=== PATIENT | male | born 1955 | race Caucasian/White ===

== ENCOUNTER 2017-07-08 08:27 | Day surgery (SDC) | payer OTHER ==
--- NOTE | 2017-07-02 21:39 | HP ---
PREOPERATIVE HISTORY AND PHYSICAL: DATE OF SURGERY/ADMISSION: 07/15/17 DATE OF OFFICE VISIT: 07/02/17 ATTENDING SURGEON: Dr. Kandi Barreto.* (DICTATED BY JEFF BLANDON) PROCEDURES: Left shoulder arthroscopic rotator cuff repair, decompression, debridement, subpectoral biceps tenodesis. CHIEF COMPLAINT: Left shoulder. HISTORY OF PRESENT ILLNESS: Vaughn is a 61-year-old male, who presents to the clinic for work-related injury of his left shoulder that caused a rotator cuff tear and biceps tendinitis. He has failed conservative measures and has therefore agreed to undergo a left shoulder arthroscopic rotator cuff repair, decompression, debridement, subpectoral biceps tenodesis with Dr. Barreto on 02/21. PAST MEDICAL HISTORY: 1. Arthritis. 2. Hepatitis A. 3. Depression and anxiety. PAST SURGICAL HISTORY: 1. Hernia repair. 2. Right shoulder decompression and debridement. 3. Two elbow surgeries on his right. 4. Neck fusion. Denies prior complications with anesthesia. He does report nausea with morphine. MEDICATIONS: 1. Tramadol 50 mg 1 to 2 by mouth every 6 hours as needed. 2. Cymbalta 60 mg 2 capsules by mouth every day. 3. Lyrica 25 mg 1 cap by mouth every day. 4. Tylenol 325 mg 3 tabs every 4 hours as needed for pain. ALLERGIES: TETRACYCLINE. FAMILY HISTORY: Positive for hypertension in his mother. Stroke, cancer, heart disease in a brother with the DVT. SOCIAL HISTORY: He is a former smoker, quit several years ago. He reports occasional alcohol use. He denies illegal drug use. He is right hand dominant. REVIEW OF SYSTEMS: A 14-point review of systems was reviewed with the patient. Positive for current complaint, otherwise negative. Denies numbness, tingling, fever, chills, chest pain, shortness of breath, history of DVT or PE, history of bleeding disorder, history of hep C or HIV. PHYSICAL EXAMINATION GENERAL: A 61-year-old well-developed, well-nourished male, in no acute distress. Alert and oriented x3. Appropriate mood and affect. VITAL SIGNS: Height 68, weight 194. Blood pressure 130/86, respiratory rate 18 , temperature 98.1, BMI 29.5. HEENT: Normocephalic, atraumatic. PERRLA. Throat clear. NECK: Supple. PULMONARY: Lungs are clear to auscultation bilaterally. No wheezing, rhonchi, or rales. CARDIO: Regular rate and rhythm. S1, S2. No murmurs, gallops, or rubs. No edema. ABDOMEN: Positive bowel sounds, soft, nontender. MUSCULOSKELETAL: Left upper extremity, skin is intact. No warmth or erythema. Tenderness over the subacromial space in the bicipital groove. Forward flexion to 140, abduction 45, external rotation to 40. +4/5 strength into rotator cuff testing with pain. +2 radial pulses. Sensation is intact to light touch distally. STUDIES: MRI revealed subluxation of the biceps bursal-sided partial thickness tear of the supraspinatus tendon. Possible tear of the subscapularis tendon. IMPRESSION: Left shoulder rotator cuff tear and biceps tendonitis. PLAN: Vaughn is a 61-year-old male with failed conservative measures after a work - related injury of his left shoulder that caused rotator cuff tear and biceps tendonitis. He is therefore agreed to undergo a left shoulder arthroscopic rotator cuff repair, decompression, debridement, subpectoral biceps tenodesis with Dr. Barreto on 07/15/17. He will follow up in 10 to 14 days postop for followup and suture removal. Percocet will be used for postop pain management and Keflex for antibiotic prophylaxis. JEFF BLANDON [id number]/[facility] #: [id number] [facility] CENTERY[facility]
[~2017-07-08 08:27] MED LIST: Buffered Lidocaine 0.9% SYRIN* 5 ML/SYR SYRINGE INTRADERM ONE
[2017-07-08] MEDS ORDERED: ceFAZolin 2 GM PREMIX (*) 2 GM/50 ML BAG IVPB ONE (08:40)
[2017-07-08] MEDS ORDERED: Midazolam* 1 MG/ML 2 ML VIAL (2 MG) ONE (08:50)
[2017-07-08] MEDS ORDERED: fentaNYL* 50 MCG/ML 2 ML VIAL (100 MCG VIAL) ONE (08:50)
[2017-07-08] MEDS ORDERED: Bupivacaine 0.5% SDV PF* 10-30ML VIAL ONE ×2 (09:35)
[2017-07-08] MEDS ORDERED: Bupivacaine 0.25% SDV* 30 ML ONE (09:55)
[2017-07-08] MEDS ORDERED: Cisatracurium* 2 MG/ML MDV 5 ML ONE (10:28)
[2017-07-08] MEDS ORDERED: Succinylcholine* 20 MG/ML 10 ML VIAL ONE (10:44)
[2017-07-08] MEDS ORDERED: Dexamethasone IV* 4 MG/ML 1 ML (4 MG) ONE (10:44)
[2017-07-08] MEDS ORDERED: Famotidine IV* 10 MG/ML 2 ML (20 mg) ONE (10:44)
[2017-07-08] MEDS ORDERED: Propofol* 10 MG/ML 20 ML BTL IV PUSH ONE (10:44)
[2017-07-08] MEDS ORDERED: Ondansetron INJ* 2 MG/ML VIAL ONE (10:44)
[2017-07-08] MEDS ORDERED: Ketorolac INJ* 30 MG/ML 1 ML VIAL ONE (10:44)
[2017-07-08] MEDS ORDERED: Labetalol IV* 5 MG/ML 20 ML VIAL ONE (10:47)
[2017-07-08] MEDS ORDERED: EPHEDrine (Pressors)* 50 MG/ML VIAL ONE (10:58)
[2017-07-08] MEDS ORDERED: DiMENhydriNATE IV* 50 MG/ML VIAL IV PUSH PRN (11:37)
[2017-07-08] MEDS ORDERED: Naloxone* 0.4 MG/ML 1 ML VIAL IV PRN (11:37)
[2017-07-08] MEDS ORDERED: Acetaminophen TAB* 325 MG PO PRN (11:37)
[2017-07-08] MEDS ORDERED: PROCHLORPERAZINE INJ 5 MG/ML 2 ML VIAL IV PRN (11:37)
[2017-07-08] MEDS ORDERED: fentaNYL* 50 MCG/ML 2 ML VIAL (100 MCG VIAL) IV PRN (11:37)
[2017-07-08 13:23] VITALS: BP 130/76
--- NOTE | 2017-07-09 22:16 | OP ---
CC: PCP, Tahir Brown MD * DATE OF OPERATION: 07/08/17 - [facility] DATE OF : 53 SURGEON: Kandi Barreto MD [employer] MECHANIC: JEFF Lea. An anatomic pathology assistant was needed for the entirety of case to help with positioning, retraction, and utilized throughout all portions of the case. ANESTHESIOLOGIST: Dr. Sarabia. ANESTHESIA: General interscalene block. PRE-OP DIAGNOSIS: Left shoulder rotator cuff tear supraspinatus as well as superior labral tear and biceps instability. POST-OP DIAGNOSIS: Left shoulder rotator cuff tear supraspinatus as well as superior labral tear and biceps instability. OPERATIVE PROCEDURE: Left shoulder arthroscopy with 1. extensive glenohumeral debridement. 2. subacromial decompression with acromioplasty 3. rotator cuff repair of supraspinatus 4. subpectoral biceps tenodesis INDICATIONS: Vaughn Rodriguez is a 61-year-old male who presented with a work-related injury that happened in May 2017 when he slipped on the ice and landed on his shoulder. He had significant anterior based pain. He had difficulty with his range of motion. He was concerned for rotator cuff tear. We did an MRI that demonstrated bicep subluxation with no full-thickness tears with concerns for the tear of the subscap as well as part of the supraspinatus. The risks and benefits of surgery were discussed at length. He has failed conservative management including injections, anti-inflammatories and physical therapy. Risks and benefits were discussed at length, they include but are not limited to bleeding, infection, damage to nerves, vessels, surrounding structures, wound nonhealing, persistent pain, need for surgery, scarring, stiffness, incomplete relief of symptoms and risk of anesthesia. DESCRIPTION OF PROCEDURE: The patient was greeted in the preoperative area by the attending surgeon. The correct extremity was marked and consent was confirmed. The patient underwent interscalene nerve block by the anesthesiologist after which he was brought back to the operating suite where he was placed supine position on the operating table. He then underwent general anesthesia and endotracheal intubation after which he was positioned in the right lateral decubitus position with an axillary roll. He was secured with peg board. All bony prominences were padded. The left shoulder was suspended unsterilely with 10 pounds of traction. Left shoulder was prepped and draped in the usual sterile fashion beginning with chlorhexidine soap, scrub, and alcohol wipe and a final prep of ChloraPrep. After appropriate surgical pause indicating side, site, procedure, and administration of antibiotics, a standard postero-lateral portal was made sharply with 11 blade. Scope was introduced into the joint. Joint was examined. There were some chondrosis of the glenohumeral joint. The superior labrum had torn with biceps subluxed. There was damage to the jean as well as the undersurface of the subscap. The anterior portal was made in an outside- in fashion. The shaver was used to debride back the anterior posterior superior labrum to do small chondroplasty. The undersurface of the subscap was then debrided back as well. The biceps was then tenotomized for later tenodesis. There was a full thickness tear of the anterior portion of the supraspinatus. The subscap was identified and shaved and debrided back. Once the debridement was completed, attention was directed to subacromial space. The scope was positioned in the subacromial space. Lateral portal was made in an outside-in fashion. Shaver was used to debride back the abundant bursa that was present. There was an unstable beginning of an L-shaped tear of the supraspinatus. The tendon was carefully released to expose the portion of the tendon, a lot of this tendon was of not good quality. The shaver was used to remove the abundant bursa that was present. The undersurface of the acromion was skeletonized using electrocautery device. A small 4-0 oval kaity was then used to do an acromioplasty, as he had a large anterolateral spur, overarching spur, that was removed. Once the decompression was completed, attention was directed to the rotator cuff. The shaver was used to debride back the unstable portion of the rotator cuff. The 4-0 oval kaity was then used to gently decorticate the greater tuberosity. The rasp was used to also decorticate. One anchor was placed in a medial row. Through a separate stab incision, two 4.75 Healicoil sutures were passed through the tendon again. Part of the portion of the tendon was not of very good quality, eventually this passed through good quality tendon, then in a horizontal mattress configuration it was tied down. The sutures were then passed through a second separate anchor for lateral row fixation, this helped to secure and compress the rotator cuff back to tuberosity. Final images were obtained. Shoulder was taken through range of motion. Attention was directed to the biceps. The bed was airplaned to the left side. The anterior aspect of the shoulder was prepped again using the ChloraPrep. The #15 blade was used to make incision in line with the biceps tendon, soft tissue carefully dissected using Metzenbaum scissors until the fascia was identified. The remainder of the fascia was done bluntly. The biceps was then identified and brought through the groove, it had abundant synovitis and inflammation. The bicipital groove was then prepared in usual fashion with the use of electrocautery device, the red ball rasp and the osteotome. The Q-Fix guide was then placed in the bicipital groove and the drill was drilled unicortically. The Q-Fix anchor was deployed with excellent purchase. The sutures were passed through the tendon in approximately 1 cm proximal to the musculotendinous junction in a Mahesh-Paxton type configuration. The excess bicep was excised. The biceps was then secured. The wounds were copiously irrigated with sterile saline and portals were closed with 3-0 nylon, the anterior wound was closed with 2-0 Vicryl and 3- 0 Monocryl, anterior wound was injected with 20 cc of 0.25% Marcaine plain. Sterile dressings were applied. A Cryo/Cuff and UltraSling were placed. He was awoken from anesthesia and transferred to PACU in stable condition. POSTOPERATIVE PLAN: He will be nonweightbearing. He will be discharged on pain medication, which is hydrocodone, as well as ibuprofen and antibiotics. He will start physical therapy in 4 weeks. He otherwise is nonweightbearing. DVT prophylaxis was considered, but deferred due to no previous personal or family history. I will see the patient back in 2 weeks. [id number]/[facility] #: [id number] ZHAO
== END 2017-07-08 13:38 | disposition home or self-care (01) ==
LOC: OR 08:27
PROVIDERS: ATTEND Orthopaedic Surgery
DX: S46.012A Strain of muscle(s) and tendon(s) of the rotator cuff of left shoulder, initial encounter (principal); S43.492A Other sprain of left shoulder joint, initial encounter; M25.312 Other instability, left shoulder; G89.18 Other acute postprocedural pain; W00.0XXA Fall on same level due to ice and snow, initial encounter; Y92.89 Other specified places as the place of occurrence of the external cause; Y99.0 Civilian activity done for income or pay; Z87.891 Personal history of nicotine dependence; F41.8 Other specified anxiety disorders; M47.812 Spondylosis without myelopathy or radiculopathy, cervical region; Z98.1 Arthrodesis status
CPT/HCPCS: C1713; C1776; J0330; J0690; J1100; J1885; J2250; J2405; J2704; J3010

== ENCOUNTER 2018-05-12 06:11 | Day surgery (SDC) | payer MEDICARE, OTHER ==
--- NOTE | 2018-04-26 09:31 | HP ---
PREOPERATIVE HISTORY AND PHYSICAL: DATE OF ADMISSION/SURGERY: 05/12/18 DATE OF OFFICE VISIT: 04/23/18 ATTENDING SURGEON: Dr. Kandi Barreto.* (DICTATED BY JEFF BLANDON) PROCEDURE: Left shoulder arthroscopic rotator cuff repair. CHIEF COMPLAINT: Left shoulder pain. HISTORY OF PRESENT ILLNESS: Vaughn is a 62-year-old male, who presents to the clinic for left shoulder pain due to a rotator cuff tear. He has failed rotator cuff repair by Dr. Barreto in the past and has recently failed conservative measures for treatment of the retear; therefore, has agreed to undergo a left shoulder arthroscopic rotator cuff repair with Dr. Barreto on 09/22. PAST MEDICAL HISTORY: Arthritis, hepatitis A, depression, anxiety. PAST SURGICAL HISTORY: Hernia repair, right shoulder decompression and debridement, two elbow surgeries on his right elbow, and neck fusion. He has also had a prior left shoulder rotator cuff repair. He denies prior complications with anesthesia. He does report nausea with morphine. MEDICATIONS: 1. Duloxetine 60 mg by mouth every day. 2. Ibuprofen 600 mg 3 times a day as needed. 3. Omeprazole 20 mg 1 by mouth every day. 4. Tylenol 325 two tabs every 4 to 6 hours as needed for pain. ALLERGIES: TETRACYCLINE. FAMILY HISTORY: Positive for hypertension in his mother; stroke, cancer, heart disease; and a brother with DVT. SOCIAL HISTORY: He is a former smoker, quit several years ago. He reports occasional alcohol use. He denies illegal drug use. He is right-hand dominant. REVIEW OF SYSTEMS: A 14-point review of systems was reviewed with the patient. Positive for current complaint, otherwise negative. Denies numbness, tingling, fever, chills, chest pain, shortness of breath, history of DVT or PE, history of bleeding disorder. Denies history of hep C or HIV. PHYSICAL EXAMINATION GENERAL: A 62-year-old well-developed, well-nourished male, in no acute distress. Alert and oriented x3. Appropriate mood and affect. Appropriate balance and coordination of the upper extremities. VITAL SIGNS: Height 68, weight 200, pulse 64, blood pressure 142/82, BMI 30.4. HEENT: Normocephalic, atraumatic. PERRLA. Throat clear. NECK: Supple. PULMONARY: Lungs are clear to auscultation bilaterally. No wheezing, rhonchi, or rales. CARDIO: Regular rate and rhythm. S1, S2. No murmurs, gallops, or rubs. No edema. ABDOMEN: Positive bowel sounds. Soft, nontender. NEURO: Alert and oriented x3. Cranial nerves grossly intact. MUSCULOSKELETAL: Left upper extremity: Skin is intact. Well-healed surgical incision with no signs of infection. Forward flexion to 170, abduction to 150, external rotation to 60, internal rotation to the lower lumbar spine. +4/5 strength to rotator cuff testing with pain. Positive impingement, Speed, Salter- Jhonathan, Stroud. Positive Belkys. +2 radial pulse. Sensation intact to light touch distally. DIAGNOSTIC STUDIES: MRI revealed full-thickness tear of the supraspinatus tendon, subscap appears intact. IMPRESSION: Left shoulder rotator cuff tear. PLAN: The patient is scheduled to undergo a left shoulder arthroscopic rotator cuff repair with Dr. Barreto on 05/12/18. He will follow up 10 to 14 days postop. Percocet will be used for postop pain management and Keflex for antibiotic prophylaxis. JEFF BLANDON [id number]/[facility] #: [id number] MTDYuki
[~2018-05-12 06:11] MED LIST changes: -Buffered Lidocaine 0.9% SYRIN* 5 ML/SYR SYRINGE INTRADERM ONE; +Buffered Lidocaine 1% SYRIN* 1 ML/SYRINGE INTRADERM ONE; +Dexamethasone TAB* 4 MG PO ONE; +DiMENhydriNATE IV* 50 MG/ML VIAL IV PUSH PRN; +Famotidine IV* 10 MG/ML 2 ML (20 mg) IV ONE; +Lactated Ringers 1000 ML Bag* 1,000 ML IV SCH; +Morphine VIAL* 4 MG/ML VIAL (1 ml vial) IV PRN; +Naloxone* 0.4 MG/ML 1 ML VIAL IV PRN; +Ondansetron TAB* 4 MG PO ONE; +PROCHLORPERAZINE INJ 5 MG/ML 2 ML VIAL IV PRN; +fentaNYL* 50 MCG/ML 2 ML VIAL (100 MCG VIAL) IV PRN; +oxyCODONE/Acetamin 5/325 MG* TAB PO PRN
[2018-05-12] MEDS ORDERED: Ondansetron ODT TAB* 4 MG ONE (07:09)
[2018-05-12] MEDS ORDERED: Famotidine IV* 10 MG/ML 2 ML (20 mg) ONE (07:09)
[2018-05-12] MEDS ORDERED: ceFAZolin 2 GM PREMIX in ORs 2 GM/50 ML BAG IVPB ONE (07:09)
[2018-05-12] MEDS ORDERED: Dexamethasone TAB* 4 MG ONE (07:09)
[2018-05-12] MEDS ORDERED: fentaNYL* 50 MCG/ML 2 ML VIAL (100 MCG VIAL) ONE ×2 (08:08→10:50)
[2018-05-12] MEDS ORDERED: Midazolam* 1 MG/ML 5 ML VIAL (5 MG) ONE (08:08)
[2018-05-12] MEDS ORDERED: Ropivacaine* 2 MG/ML 20 ML VIAL (0.2%) ONE (09:06)
[2018-05-12] MEDS ORDERED: Bupivacaine 0.5% SDV PF* 30ML VIAL ONE (11:04)
[2018-05-12] MEDS ORDERED: Ketorolac INJ* 30 MG/ML 1 ML VIAL ONE (11:04)
[2018-05-12] MEDS ORDERED: Propofol* 10 MG/ML 20 ML BTL ONE (11:04)
[2018-05-12] MEDS ORDERED: Lidocaine 2% PF * 5 ML VIAL ONE (11:04)
[2018-05-12 12:03] VITALS: BP 153/99
--- NOTE | 2018-05-12 21:07 | OP ---
CC: PCP, Sarah Ann MD* DATE OF OPERATION: 05/12/18 - [facility] DATE OF : 53 SURGEON: Kandi Barreto M.D. ASSISTANTS: 1. JEFF Deras 2. JEFF Perez. ANESTHESIOLOGIST: Dr. Correa. ANESTHESIA: General interscalene block. PRE-OP DIAGNOSIS: Left shoulder retear of rotator cuff repair. POST-OP DIAGNOSIS: Left shoulder retear of rotator cuff repair. OPERATIVE PROCEDURE: Left shoulder arthroscopy with revision, subacromial decompression, rotator cuff repair, and lysis of adhesions. COMPLICATIONS: None. IMPLANTS USED: One Healicoil, one Multifix, one Regeneten size medium patch. INDICATIONS: Vaughn Rodriguez is a 62-year-old male, who underwent a previous rotator cuff repair for a large tear of the supraspinatus tendon. He did well initially and then he started to have persistent pain. He then started to have more pain with diagnosis of the retear, but not the entirety of the tendon, just anteriorly. He had significant pain with mobility. He also had loss of motion and some signs and symptoms of frozen shoulder. I discussed with patient about the risks and benefits of surgery, and risks included but are not limited to bleeding, infection, damage to nerves, vessels, surrounding structures, wound nonhealing, persistent pain, need for further surgery, scarring, stiffness, incomplete relief of symptoms, and risk of anesthesia, and he has elected to proceed with surgical treatment. DESCRIPTION OF PROCEDURE: The patient was greeted in the preoperative area by the attending surgeon. The correct extremity was marked and consent was confirmed. The patient underwent interscalene nerve block by the anesthesiologist after which he was brought back to the operating suite where he was placed supine position on the operating table. He then underwent general anesthesia and LMA intubation. His left arm was draped unsterile with 10 pounds of traction. Left shoulder was then prepped and draped in the usual sterile fashion beginning with chlorhexidine soap, scrub, and alcohol wipe and a final prep of ChloraPrep. After appropriate surgical pause indicating side, site, procedure, and administration of antibiotics, the posterolateral portal was made sharply with 11 blade. Scope was introduced into the joint. Joint was examined. There was abundant scar tissue and adhesions. There was obvious adhesive capsulitis. There was obvious scar tissue anteriorly. The interval was very tight and thick. The anterior portal was made in an outside-in fashion. The shaver was used to debride back the anterior posterior superior labrum as well as the lysis of adhesions anteriorly along the interval towards all the abundant scar tissue. The subscap was intact. There was evidence of full thickness tear of the supraspinatus tendon only anteriorly, part of the repair remained intact. Once the lysis of adhesions was completed, attention was directed to the subacromial space. The scope was positioned in the subacromial space. The lateral portal was made in an outside-in fashion. Shaver was used to debride back the abundant bursa that was thick and tight. There was evidence of an anterior aspect of the supraspinatus that was torn, however, the posterior aspect was intact. We could see the sutures still in place. The tendon was scarred to the deltoid as well as to the acromion. This was then released using electrocautery and elevator. There was small anterolateral spur evident anteriorly as well as the spur around the AC joint. This was all released doing a revision of acromioplasty and coplaning of the distal clavicle was then done using 4-0 oval kaity. The remainder of the cuff tissue was then released from its adhesions to the deltoid and it was mobilized. Once it was fully mobilized, an Ortho Braid suture was passed as a traction stitch, while another Ortho Braid was then used to do side- and-side repair between the intact and the torn supraspinatus. After that, the greater tuberosity was prepared in usual fashion using electrocautery device and the 4-0 oval kaity was gently decorticated. There was a good bleeding bone that was identified. Then, a 4.75 Healicoil was placed with excellent purchase. A small micropressure was done at the greater tuberosity to allow for further healing. The sutures were then passed through the tendon in a horizontal mattress configuration and tied down. This helped to re-approximate the supraspinatus tendon anteriorly. At this point, images were obtained. It was concerned that this was a revision tear and I then decided to augment the repair with Regeneten patch. The patch was then brought to the field and secured medially with tendon lazara and laterally with bone lazara. Final images were obtained. The wounds were copiously irrigated with sterile saline. Portals were closed with 3-0 nylon. Sterile dressings were applied as well as a Cryo/Cuff and UltraSling. He was awoken from anesthesia and transferred to PACU in stable condition. POSTOPERATIVE PLAN: He will be nonweightbearing. He will be in a sling for about 6 weeks. He will start physical therapy at around 4 weeks. He will be discharged on pain medications. DVT prophylaxis was considered, but deferred due to no previous personal or family history. I will see the patient back in 10 to 14 days. [id number]/[facility] #: [id number] MTDD
== END 2018-05-12 12:25 | disposition home or self-care (01) ==
LOC: OR 06:11
PROVIDERS: ATTEND Orthopaedic Surgery
DX: M75.112 Incomplete rotator cuff tear or rupture of left shoulder, not specified as traumatic (principal); K21.9 Gastro-esophageal reflux disease without esophagitis; F41.9 Anxiety disorder, unspecified
CPT/HCPCS: A9270-GY; C1713; J0690; J1885; J2250; J2704; J2795; J3010; J8540

== ENCOUNTER 2021-10-31 14:24 | Inpatient (IN) ==
[2021-10-31 17:04] LABS: ABS Eosinophils 0.2 10^3/ul (0-0.6); ABS Lymphocytes 1.3 10^3/ul (1.0-4.8); ABS Monocytes 0.6 10^3/ul (0-0.8); ABS Neutrophils 5.4 10^3/ul (1.5-7.7); Eosinophil % 2.5 %; Hematocrit 45 % (42-52); Lymphocyte % 17.1 %; Mean Corpuscular HGB Conc 34 g/dL (31-36); Mean Corpuscular Hemoglobin 29 pg (27-31); Mean Corpuscular Volume 85 fL (80-94); Mean Platelet Volume 8.6 fL (7.4-10.4); Nucleated Red Blood Cells % 0.1; Platelet Count 309 10^3/uL (150-450); Red Blood Count 5.21 10^6 /uL (4.18-5.48); Red Cell Distribution Width 15 % (10-15); White Blood Count 7.6 10^3/uL (3.5-10.8)
[2021-10-31 17:23] LABS: Urine Appearance Clear; Urine Color Yellow
[2021-10-31 17:24] LABS: Urine Bilirubin Negative (Negative); Urine Blood Negative (Negative); Urine Glucose Negative (Negative); Urine Ketones Trace (Negative); Urine Nitrite Negative (Negative); Urine Protein Negative (Negative); Urine Specific Gravity 1.025 (1.005-1.030); Urine Urobilinogen 0.2 (Negative) (Negative); Urine pH 5.5 (5.0-9.0)
[2021-10-31 17:45] LABS: ALT 18 U/L (7-52); Albumin 4.6 g/dL (3.2-5.2); Albumin/Globulin Ratio 1.5 (1-3); Alkaline Phosphatase 70 U/L (35-149); Blood Urea Nitrogen 13 mg/dL (6-24); C Reactive Protein 6.43 mg/L (<8.01); CO2 Carbon Dioxide 25 mmol/L (22-32); Chloride 102 mmol/L (101-111); Globulin 3.1 g/dL (2-4); Glucose 84 mg/dL (70-100); Lipase 58 U/L (11.0-82.0); Sodium 135 mmol/L (135-145); Total Protein 7.7 g/dL (6.4-8.9); eGFR CKD-EPI 79.2 (>60)
[2021-10-31 17:48] LABS: Anion Gap 8 mmol/L (2-11)
[2021-10-31] MEDS ORDERED: Iohexol 350 (CONTRAST) 500 ML MDV IV ONE (17:55)
[2021-10-31] MEDS ORDERED: Ciprofloxacin 400mg IVPREMIX 400 MG/200 ML BAG IVPB ONE (19:59)
[2021-10-31 20:09] LABS: Potassium Redraw 4.2 mmol/L (3.5-5.0)
[2021-10-31] MEDS ORDERED: Ondansetron 4 mg VIAL 2 MG/ML 2 ml VIAL IV PRN (21:11)
[2021-10-31] MEDS ORDERED: Morphine 2 MG/ML SYRINGE IV PRN (21:16)
[2021-10-31] MEDS: Acetaminophen IV 1 GM/100ML 100 ML IV SCH (21:42)
[2021-10-31] MEDS ORDERED: Piperacillin/Tazobac ADVAN 3.375 GM in NS 0.9% 100 ml BAG 100 ML IV ONE (21:44)
[2021-10-31] MEDS ORDERED: Zosyn per Pharmacy NOTE FOLLOW UP SCH (22:00)
[2021-10-31] MEDS: Pantoprazole VIAL 40 MG VIAL IV SCH (23:13)
[2021-10-31] MEDS: Lactated Ringers 1000 ml BAG 1,000 ML IV SCH (23:39)
[2021-11-01] MEDS: ZOSYN 3.375 GM Q8H per EXTENDED INFUSION IV SCH ×3 (02:50→18:18)
[2021-11-01 04:38] LABS: Hematocrit 40 % (42-52); Hemoglobin 13.3 g/dL (14.0-18.0); Mean Corpuscular HGB Conc 34 g/dL (31-36); Mean Corpuscular Hemoglobin 29 pg (27-31); Mean Corpuscular Volume 86 fL (80-94); Mean Platelet Volume 8.4 fL (7.4-10.4); Platelet Count 261 10^3/uL (150-450); Red Blood Count 4.66 10^6 /uL (4.18-5.48); Red Cell Distribution Width 15 % (10-15); White Blood Count 4.1 10^3/uL (3.5-10.8)
[2021-11-01 04:42] LABS: INR 1.08 (0.89-1.11)
[2021-11-01 05:02] LABS: Calcium 9.2 mg/dL (8.6-10.3); Magnesium 1.8 mg/dL (1.9-2.7); eGFR CKD-EPI 68.8 (>60)
[2021-11-01] MEDS ORDERED: Magnesium Sulfate 2 gm BAG 2 GM/50 ML BAG IVPB ONE (05:14)
[2021-11-01] MEDS: Acetaminophen IV 1 GM/100ML 100 ML IV SCH ×3 (05:55→21:22)
[2021-11-01] MEDS: Pantoprazole VIAL 40 MG VIAL IV SCH (08:27)
[2021-11-01] MEDS ORDERED: Ciprofloxacin 400mg IVPREMIX 400 MG/200 ML BAG IVPB SCH (09:00)
[2021-11-01] MEDS ORDERED: cefTRIAXone 2 gm/50 mL D5W 2 GM/50 ML BAG IV SCH (09:00)
[2021-11-01] MEDS: Lactated Ringers 1000 ml BAG 1,000 ML IV SCH ×2 (10:22→18:42)
[2021-11-01] MEDS: Enoxaparin 40 MG/0.4 ML SYR SUBCUT SCH (14:16)
[2021-11-01] MEDS: DULoxetine DR 60 mg CAP PO SCH (20:04)
[2021-11-02] MEDS: ZOSYN 3.375 GM Q8H per EXTENDED INFUSION IV SCH ×3 (02:36→18:01)
[2021-11-02 04:58] LABS: ABS Basophils 0.1 10^3/ul (0-0.2); ABS Eosinophils 0.3 10^3/ul (0-0.6); ABS Lymphocytes 1.1 10^3/ul (1.0-4.8); ABS Monocytes 0.4 10^3/ul (0-0.8); ABS Neutrophils 2.3 10^3/ul (1.5-7.7); Eosinophil % 6.8 %; Hematocrit 38 % (42-52); Hemoglobin 12.7 g/dL (14.0-18.0); Lymphocyte % 25.4 %; Mean Corpuscular HGB Conc 33 g/dL (31-36); Mean Corpuscular Hemoglobin 28 pg (27-31); Mean Corpuscular Volume 85 fL (80-94); Mean Platelet Volume 8.5 fL (7.4-10.4); Nucleated Red Blood Cells % 0.2; Platelet Count 236 10^3/uL (150-450); Red Blood Count 4.48 10^6 /uL (4.18-5.48); Red Cell Distribution Width 15 % (10-15); White Blood Count 4.2 10^3/uL (3.5-10.8)
[2021-11-02 05:10] LABS: Calcium 8.6 mg/dL (8.6-10.3); Magnesium 2.1 mg/dL (1.9-2.7); Potassium 4.4 mmol/L (3.5-5.0); eGFR CKD-EPI 74.4 (>60)
[2021-11-02] MEDS: Lactated Ringers 1000 ml BAG 1,000 ML IV SCH (05:14)
[2021-11-02] MEDS: Acetaminophen IV 1 GM/100ML 100 ML IV SCH ×2 (05:47→15:29)
[2021-11-02] MEDS: Pantoprazole VIAL 40 MG VIAL IV SCH (09:10)
[2021-11-02] MEDS: DULoxetine DR 60 mg CAP PO SCH (09:10)
[2021-11-02] MEDS: Enoxaparin 40 MG/0.4 ML SYR SUBCUT SCH (13:59)
[2021-11-02] MEDS ORDERED: Acetaminophen IV 1 GM/100ML 100 ML IV PRN (14:21)
[2021-11-02 17:00] LABS: Ferritin 85.4 ng/mL (24-336)
[2021-11-03] MEDS: ZOSYN 3.375 GM Q8H per EXTENDED INFUSION IV SCH ×3 (01:50→19:12)
[2021-11-03 05:42] LABS: Hematocrit 43 % (42-52); Mean Corpuscular HGB Conc 33 g/dL (31-36); Mean Corpuscular Hemoglobin 28 pg (27-31); Mean Corpuscular Volume 87 fL (80-94); Mean Platelet Volume 8.5 fL (7.4-10.4); Platelet Count 282 10^3/uL (150-450); Red Blood Count 4.92 10^6 /uL (4.18-5.48); Red Cell Distribution Width 15 % (10-15); White Blood Count 5.6 10^3/uL (3.5-10.8)
[2021-11-03] MEDS: DULoxetine DR 60 mg CAP PO SCH (10:14)
[2021-11-03] MEDS: Enoxaparin 40 MG/0.4 ML SYR SUBCUT SCH (14:02)
[2021-11-04] MEDS: ZOSYN 3.375 GM Q8H per EXTENDED INFUSION IV SCH ×2 (02:42→10:27)
[2021-11-04 04:52] LABS: Hematocrit 40 % (42-52); Hemoglobin 13.3 g/dL (14.0-18.0); Mean Corpuscular HGB Conc 33 g/dL (31-36); Mean Corpuscular Hemoglobin 28 pg (27-31); Mean Corpuscular Volume 85 fL (80-94); Mean Platelet Volume 8.6 fL (7.4-10.4); Platelet Count 250 10^3/uL (150-450); Red Cell Distribution Width 15 % (10-15); White Blood Count 5.2 10^3/uL (3.5-10.8)
[2021-11-04 05:25] LABS: Calcium 9.2 mg/dL (8.6-10.3); Magnesium 1.9 mg/dL (1.9-2.7); Potassium 4.3 mmol/L (3.5-5.0); eGFR CKD-EPI 72.8 (>60)
[2021-11-04] MEDS: DULoxetine DR 60 mg CAP PO SCH (08:15)
[2021-11-04 11:10] VITALS: BP 174/96
[2021-11-04] MEDS: Enoxaparin 40 MG/0.4 ML SYR SUBCUT SCH (14:22)
== END 2021-11-04 15:20 | disposition home or self-care (01) | DRG 392 ==
LOC: ED 14:24 → SUATTDRO 21:11 → EDHOLD 21:11 → SSU 11-01 00:50
PROVIDERS: ADMIT Internal Medicine; ATTEND Family Medicine